=== PATIENT | male | born 1950 | race Caucasian/White ===

== ENCOUNTER → 2016-09-19 | Outpatient (CLI) | payer OTHER | LOC: FIMAGING 11:58 | PROVIDERS: ATTEND Internal Medicine | DX: R91.8 Other nonspecific abnormal finding of lung field (principal) ==

== ENCOUNTER → 2016-09-19 | Outpatient (CLI) | payer OTHER ==
[~2016-09-19] MED LIST: IOPAMIDOL (ISOVUE-300) 100 ML BTL IV ONE
== END ==
LOC: FIMAGING 14:06
PROVIDERS: ATTEND Internal Medicine
DX: J98.4 Other disorders of lung (principal); R91.1 Solitary pulmonary nodule
CPT/HCPCS: Q9967

== ENCOUNTER → 2016-10-23 | Outpatient (CLI) | payer OTHER | LOC: FIMAGING 12:08 | PROVIDERS: ATTEND Internal Medicine | DX: J85.2 Abscess of lung without pneumonia (principal) ==

== ENCOUNTER → 2016-12-09 | Outpatient (CLI) | payer OTHER | LOC: FIMAGING 14:30 | PROVIDERS: ATTEND Internal Medicine Infectious Disease | DX: R91.8 Other nonspecific abnormal finding of lung field (principal) ==

== ENCOUNTER 2018-02-25 17:04 | Emergency (ER) | payer OTHER ==
--- NOTE | 2018-02-25 17:44 | EDPHY ---
H & P Time Seen by Provider: 02/25/18 17:35 HPI/ROS: CHIEF COMPLAINT: Facial laceration and alcohol withdrawal HISTORY OF PRESENT ILLNESS: Patient is a 67-year-old male here with complaint of laceration to the bridge of his nose after fell while intoxicated this morning. Denies any loss consciousness, eye pain, dizziness, vomiting, neck pain, other injuries. Additionally he is requesting he be transferred to [facility] for alcohol detox. States that about 5 years ago he went to [facility] and completed detox. He did have withdrawal seizures at that time. Today he states his last drink was this morning. Time of initial evaluation he denies any sensation diaphoresis, shortness of breath, confusion, tremor. REVIEW OF SYSTEMS: Constitutional: No fever, no chills. Eyes: No discharge. ENT: No sore throat. Cardiovascular: No chest pain, no palpitations. Respiratory: No cough, no shortness of breath. Gastrointestinal: No abdominal pain, no vomiting. Genitourinary: No hematuria. Musculoskeletal: No back pain. Skin: No rashes. Neurological: No headache. Smoking Status: Never smoked Physical Exam: General Appearance: Alert and no distress. Eyes: Pupils equal and round no injection. Respiratory: Chest is nontender, lungs are clear to auscultation. Cardiac: regular rate and rhythm. Gastrointestinal: Abdomen is soft and nontender, no masses, bowel sounds normal. Musculoskeletal: Neck is supple and nontender. Extremities have full range of motion and are nontender. Skin: No rashes or lesions. Constitutional: Initial Vital Signs Temperature (C) 36.9 C 02/25/18 17:21 Heart Rate 113 H 02/25/18 17:21 Respiratory Rate 18 02/25/18 17:21 Blood Pressure 142/113 H 02/25/18 17:21 O2 Sat (%) 96 02/25/18 17:21 O2 Delivery Mode Room Air Allergies/Adverse Reactions: No Known Allergies Allergy (Unverified 02/25/18 17:26) Home Medications: Medication Instructions Recorded Aspirin [Aspirin 81mg (OTC)] 162 mg PO HS 05/06/13 Atorvastatin Calcium [Lipitor 40 40 mg PO HS 05/06/13 mg (*)] Zolpidem Tartrate [Ambien 5MG (*)] 10 mg PO HS PRN 05/06/13 Disulfiram [Antabuse 250 MG (*)] 250 mg PO DAILY #30 tab 10/31/14 Medical Decision Making Procedures: Procedure: Laceration repair. Verbal consent was obtained from the patient. The 2 cm laceration on the bridge of the nose was anesthetized in the usual fashion. The wound was irrigated, draped and explored. There were no deep structures involved. No tendon injury or fracture was identified. The wound was repaired with 6.0 nylon 4 sutures. The wound repair was well approximated. The procedure was performed by myself. ED Course/Re-evaluation: Patient medically cleared and stabilized for transport to the [facility] for alcohol detox. He was given 2 mg of Ativan initially as he developed some symptoms of withdrawal. He then subsequently developed more withdrawal symptoms and was given 25 mg Librium and remain stable with no signs of seizure activity before time of transport. - Data Points Laboratory Results: Laboratory Results 02/25/18 17:48 02/25/18 17:48 02/25/18 02/25/18 02/25/18 18:40 17:48 17:48 WBC 8.93 10^3/uL 10^3/uL (3.80-9.50) RBC 4.71 10^6/uL 10^6/uL (4.40-6.38) Hgb 15.5 g/dL g/dL (13.7-17.5) Hct 43.0 % % (40.0-51.0) MCV 91.3 fL fL (81.5-99.8) MCH 32.9 pg pg (27.9-34.1) MCHC 36.0 g/dL g/dL (32.4-36.7) RDW 13.3 % % (11.5-15.2) Plt Count 208 10^3/uL 10^3/uL (150-400) MPV 8.8 fL fL (8.7-11.7) Neut % (Auto) 75.2 % H % (39.3-74.2) Lymph % (Auto) 16.5 % % (15.0-45.0) [place] % (Auto) 7.3 % % (4.5-13.0) Eos % (Auto) 0.0 % L % (0.6-7.6) Baso % (Auto) 0.4 % % (0.3-1.7) Nucleat RBC Rel Count 0.0 % % (0.0-0.2) Absolute Neuts (auto) 6.72 10^3/uL H 10^3/uL (1.70-6.50) Absolute Lymphs (auto) 1.47 10^3/uL 10^3/uL (1.00-3.00) Absolute Monos (auto) 0.65 10^3/uL 10^3/uL (0.30-0.80) Absolute Eos (auto) 0.00 10^3/uL L 10^3/uL (0.03-0.40) Absolute Basos (auto) 0.04 10^3/uL 10^3/uL (0.02-0.10) Absolute Nucleated RBC 0.00 10^3/uL 10^3/uL (0-0.01) Immature Gran % 0.6 % % (0.0-1.1) Immature Gran # 0.05 10^3/uL 10^3/uL (0.00-0.10) Sodium 139 mEq/L mEq/L (135-145) Potassium 3.9 mEq/L mEq/L (3.3-5.0) Chloride 104 mEq/L mEq/L (97-110) Carbon Dioxide 23 mEq/l mEq/l (22-31) Anion Gap 12 mEq/L mEq/L (8-16) BUN 17 mg/dL mg/dL (7-23) Creatinine 0.9 mg/dL mg/dL (0.7-1.3) Estimated GFR > 60 Glucose 108 mg/dL H mg/dL (70-100) Calcium 8.7 mg/dL mg/dL (8.5-10.4) Salicylates < 1.0 mg/dL L mg/dL (2.0-20.0) Urine Opiates Screen Cancelled Acetaminophen < 10 mcg/mL L mcg/mL (10-30) Urine Barbiturates Cancelled Ur Phencyclidine Scrn Cancelled Ur Amphetamine Screen NEGATIVE (NEGATIVE) Ur Amphetamines Screen Cancelled U Benzodiazepines Scrn Cancelled Urine Cocaine Screen Cancelled U Marijuana (THC) Screen Cancelled Ethyl Alcohol 148 mg/dL H mg/dL (0-10) Medications Given: Discontinued Medications Chlordiazepoxide HCl (Librium) 25 mg PO EDNOW ONE Stop: 02/25/18 21:23 Last Admin: 02/25/18 21:25 Dose: 25 mg Lorazepam (Ativan) 2 mg PO EDNOW ONE Stop: 02/25/18 18:34 Last Admin: 02/25/18 18:34 Dose: 2 mg Departure - Departure Disposition: Other Psych, Not [place] Clinical Impression: Alcoholism, Nasal laceration Instructions: Laceration (ED), Alcohol Withdrawal (ED) Additional Instructions: Suture removals in 5 days. Follow up for any signs infection or other worrisome symptoms. You're being transferred to [facility] where they will Referrals: Leonard Baum MD [Primary Care Provider] - As per Instructions
[2018-02-25 18:02] LABS: PLATELET COUNT 208 10^3/uL (150-400)
[2018-02-25] MEDS ORDERED: LORazepam 1 MG TAB ONE (18:31)
[2018-02-25] MEDS ORDERED: LORazepam 1 MG TAB PO ONE (18:33)
[2018-02-25] MEDS ORDERED: chlordiazePOXIDE 25 MG CAP PO ONE (21:22)
[2018-02-25 21:57] VITALS: BP 146/86
== END 2018-02-25 21:55 ==
PROC: 0HQ1XZZ Repair Face Skin, External Approach (ICD-10-PCS; principal; 2018-02-25)
DX: S01.21XA Laceration without foreign body of nose, initial encounter (principal); W19.XXXA Unspecified fall, initial encounter; F10.129 Alcohol abuse with intoxication, unspecified; Y90.6 Blood alcohol level of 120-199 mg/100 ml
CPT/HCPCS: 80305; G0480

== ENCOUNTER → 2018-05-28 | Outpatient (CLI) | payer OTHER | LOC: FIMAGING 14:48 → EDBD 14:48 | PROVIDERS: ATTEND Internal Medicine | DX: M51.36 Other intervertebral disc degeneration, lumbar region (principal); M51.17 Intervertebral disc disorders with radiculopathy, lumbosacral region; Q76.49 Other congenital malformations of spine, not associated with scoliosis ==